=== PATIENT | female | born 1980 | race Caucasian/White ===

== ENCOUNTER 2017-07-29 09:11 | Day surgery (SDC) | payer OTHER ==
[~2017-07-29] VITALS: Ht 167.6 cm; Wt 86.2 kg
[~2017-07-29 09:11] MED LIST: CORGARD40 MG PO; FLEXERIL10 MG PO; IMITREX6 MG/0.52 SC; LORTAB 5-325 M1 EACH PO; NEURONTIN800 MG PO; PROTONIX40 MG PO; REQUIP0.5 MG PO; STELARA90 MG/1 ML SC; TOPAMAX100 MG PO; TOPAMAX200 MG PO; ZOFRAN4 MG PO
== END 2017-07-29 10:15 | disposition home or self-care (01) ==
LOC: PAIN 09:11 → SDC 09:30 → PAIN 09:30
DX: M47.816 Spondylosis without myelopathy or radiculopathy, lumbar region (principal); M54.5 Low back pain; M79.7 Fibromyalgia; L40.50 Arthropathic psoriasis, unspecified; K21.9 Gastro-esophageal reflux disease without esophagitis; F17.200 Nicotine dependence, unspecified, uncomplicated; Z79.891 Long term (current) use of opiate analgesic
CPT/HCPCS: J1030; J2250; S0020

== ENCOUNTER 2017-08-05 09:23 | Day surgery (SDC) | payer OTHER ==
[~2017-08-05] VITALS: Ht 167.6 cm; Wt 86.2 kg
[2017-09-07] MEDS ORDERED: VITAMIN D-32000 UNI2 PO (14:38)
== END 2017-08-05 11:40 | disposition home or self-care (01) ==
LOC: PAIN 09:23 → SDC 10:00 → PAIN 10:00
DX: M47.816 Spondylosis without myelopathy or radiculopathy, lumbar region (principal); M79.7 Fibromyalgia; M54.5 Low back pain; L40.50 Arthropathic psoriasis, unspecified; G40.909 Epilepsy, unspecified, not intractable, without status epilepticus; F17.200 Nicotine dependence, unspecified, uncomplicated
CPT/HCPCS: J1030; J2250; S0020

== ENCOUNTER 2017-09-09 09:39 | Day surgery (SDC) | payer OTHER ==
[~2017-09-09] VITALS: Ht 167.6 cm; Wt 86.2 kg
[~2017-09-09 09:39] MED LIST changes: +VITAMIN D-32000 UNI2 PO
== END 2017-09-09 11:00 | disposition home or self-care (01) ==
LOC: PAIN 09:39 → SDC 10:00 → PAIN 10:00
PROC: 3E0T3TZ Introduction of Destructive Agent into Peripheral Nerves and Plexi, Percutaneous Approach (ICD-10-PCS; principal; 2017-09-09)
PROC: B01B1ZZ Fluoroscopy of Spinal Cord using Low Osmolar Contrast (ICD-10-PCS; principal; 2017-09-09)
DX: M47.816 Spondylosis without myelopathy or radiculopathy, lumbar region (principal); F17.200 Nicotine dependence, unspecified, uncomplicated; M79.7 Fibromyalgia; M54.5 Low back pain; M79.1 Myalgia
CPT/HCPCS: J1030; J2250; S0020

== ENCOUNTER 2017-09-21 13:30 | Day surgery (SDC) | payer OTHER ==
[~2017-09-21] VITALS: Ht 167.6 cm; Wt 83.9 kg
== END 2017-09-21 15:07 | disposition home or self-care (01) ==
LOC: PAIN 13:30
DX: M47.816 Spondylosis without myelopathy or radiculopathy, lumbar region (principal); L40.50 Arthropathic psoriasis, unspecified; M79.7 Fibromyalgia; F17.200 Nicotine dependence, unspecified, uncomplicated; M25.552 Pain in left hip; F41.9 Anxiety disorder, unspecified; K21.9 Gastro-esophageal reflux disease without esophagitis; Z79.891 Long term (current) use of opiate analgesic; Z88.0 Allergy status to penicillin
CPT/HCPCS: J1030; J2250; S0020